=== PATIENT | female | born 1985 | race Caucasian/White ===

== ENCOUNTER 2018-05-26 01:54 | Emergency (ER) | payer MEDICAID ==
[2018-05-26 02:11] VITALS: RESP 16; TEMP 98.6; O2SAT 100
[2018-05-26] MEDS ORDERED: guaiFENesin 200 mg/10 ml Syrup UD PO STA (02:36)
[2018-05-26] MEDS ORDERED: Albuterol 0.083% Inhal Sol (2.5 mg/3 mL) UD INH STA (02:36)
[2018-05-26] MEDS ORDERED: Albuterol-Ipratrop 3 mg / 0.5 (3 ml) UD INH STA (02:36)
[2018-05-26] MEDS ORDERED: Sodium Chloride 0.9% 1,000 ML IV SCH (02:45)
[2018-05-26] MEDS ORDERED: guaiFENesin 100 mg/5 ml Syrup UD ONE (02:46)
[2018-05-26 03:21] LABS: BASO # 0.1 K/uL (0.0-0.2); BASO % 0.9 % (0.0-2.0); EOS # 0.1 K/uL (0.0-0.7); EOS % 1.5 % (0.0-4.0); HEMOGLOBIN 12.2 g/dL (12.0-16.0); LYMPH # 4.4 K/uL (1.0-4.3); LYMPH % 48.1 % (20.0-40.0); MEAN CELL VOLUME 80.9 fl (81.0-99.0); MEAN CORPUSCULAR HEMOGLOBIN 25.5 pg (27.0-31.0); MEAN CORPUSCULAR HGB CONC 31.6 g/dL (33.0-37.0); MEAN PLATELET VOLUME 9.2 fl (7.2-11.7); MONO # 0.5 K/uL (0.0-0.8); MONO % 5.3 % (0.0-10.0); NEUT % 44.2 % (50.0-75.0); NRBC % 0.3 % (0.0-0.0); RBC 4.79 Mil/uL (3.80-5.20); RED CELL DISTRIBUTION WIDTH 14.6 % (11.5-14.5); WHITE BLOOD COUNT 9.1 K/uL (4.8-10.8)
--- NOTE | 2018-05-26 03:29 | ED PDOC ---
HPI: Chest Pain Time Seen by Provider: 05/26/18 02:20 Chief Complaint (Nursing): Chest Pain Chief Complaint (Provider): Chest pain History Per: Patient History/Exam Limitations: no limitations Onset/Duration Of Symptoms: Days Current Symptoms Are (Timing): Still Present Additional History Per: Family () Additional Complaint(s): 32yo female, comes to ER for evaluation of chest pain, described as a pressure like sensation in her mid-sternum, radiating to her left arm x 5 days. She also reports a productive cough with wet phlegm as well as 4 episodes of post-tussive vomiting. She reports associated bodyaches and a mild sore throat; patient last took Tylenol at 11pm last night. She also reports a tactile fever and left ear pain. She deneis any diarrhea, abdominal pain, headache, dizziness, recent travels or known sick contacts. Otherwise: (-) positional component, (-) exertional component, (-) syncope, (-) calf swelling/pain, (-) neuro deficits. PMD: Dr. Thomas Past Medical History Reviewed: Historical Data, Nursing Documentation, Vital Signs Vital Signs: Last Vital Signs Temp 98.6 F 05/26/18 02:06 Pulse 63 05/26/18 02:06 Resp 16 05/26/18 02:06 BP 140/59 L 05/26/18 02:23 Pulse Ox 100 05/26/18 02:06 - Medical History PMH: HTN, Hyperlipidemia, Hypothyroidism - Surgical History Surgical History: No Surg Hx - Family History Family History: States: Diabetes, Hypertension - Home Medications Home Medications: Ambulatory Orders Medication Instructions Recorded Albuterol Sulfate [Ventolin Hfa] 1 puff IH Q4 PRN #1 unit 05/26/18 RX: Naproxen 500 mg PO BID PRN #20 tab 05/26/18 RX: Promethazine DM [Phenergan DM 5 ml PO Q6 PRN #150 ml 05/26/18 Syrup] - Allergies Allergies/Adverse Reactions: Allergies Allergy/AdvReac Type Severity Reaction Status Date / Time No Known Allergies Allergy Verified 05/26/18 02:06 Review of Systems ROS Statement: Except As Marked, All Systems Reviewed And Found Negative ENT: Positive for: Ear Pain Cardiovascular: Positive for: Chest Pain Respiratory: Positive for: Cough, Sputum Gastrointestinal: Positive for: Vomiting Physical Exam - Reviewed Nursing Documentation Reviewed: Yes Vital Signs Reviewed: Yes - Physical Exam Comments: GENERAL APPEARANCE: Patient is awake, alert, oriented x 3, in no acute distress. Resting comfortably. SKIN: Warm, dry; (-) cyanosis. EYES: (-) conjunctival pallor. ENMT: Mucous membranes moist. Airway patent, (-) stridor. Pharynx: clear, uvula midline (-) erythema (-) exudate. TMs: nonbulging, nonerythematous. (-) sinus tenderness. NECK: Supple, FROM (-) tenderness, (-) stiffness, (-) lymphadenopathy, (-) JVD. CHEST AND RESPIRATORY: (-) rash, (-) chest wall tenderness. Lungs: (-) rales, (-) rhonchi, (-) wheezes, (-) rub; breath sounds equal bilaterally. Respirations even and nonlabored, speaking in full sentences. HEART AND CARDIOVASCULAR: (-) irregularity ABDOMEN AND GI: Soft; (-) distention, (-) guarding, (-) tenderness, (-) palpable pulsatile mass. EXTREMITIES: (-) deformity; (-) edema, (-) calf tenderness. (+) distal pulses. NEURO AND PSYCH: Mental status as above. Cranial nerves grossly intact; strength symmetric. Gait: steady. Speech: clear. (-) facial asymmetry (-) aphasia - Laboratory Results Result Diagrams: 05/26/18 03:16 05/26/18 03:16 - ECG O2 Sat by Pulse Oximetry: 100 (RA) Pulse Ox Interpretation: Normal Medical Decision Making Medical Decision Making: Impression: Cough, chest discomfort, probable bronchitis Plan: -- EKG -- Labs -- Chest x-ray -- Duoneb 3ml INH -- Toradol 30mg IV -- Zofran 4mg IVP -- Pepcid 40mg IVP -- Robitussin 200mg PO -- IV fluids EKG: Normal sinus rhythm @68bpm No ST elevation No ectopy QTc [id number] Labs reviewed and grossly unremarkable. On re-evaluation, patient reports improvement of symptoms. On exam, patient remains AAOx3, in no acute distress. Lungs clear to auscultation, cardiac RRR, abdomen soft, non-tender, repeat neuro exam shows no focal findings. Tolerating PO intake. VSS, stable for discharge. Lab/Diagnostic results d/w the patient in great detail. Diagnosis of cough, chest discomfort, post-tussive emesis, bronchitis d/w the patient. Based on history, exam and diagnostic results, plan will be for outpatient follow up. Patient instructed to follow-up with pmd / referral provided / the clinic in 1- 2 days without fail. Advised to take medication as prescribed. Return to the emergency room at any time for any new or worsening symptoms. Patient states she fully agrees with and understands discharge instructions. States that she agrees with the plan and disposition. Verbalized and repeated discharge instructions and plan. I have given the patient opportunity to ask any additional questions. Scribe Attestation: Documented by Gloria Shay, acting as a scribe for ISABEL Thomas. Provider Scribe Attestation: All medical record entries made by the Scribe were at my direction and personally dictated by me. I have reviewed the chart and agree that the record accurately reflects my personal performance of the history, physical exam, medical decision making, and the department course for this patient. I have also personally directed, reviewed, and agree with the discharge instructions and disposition. Disposition - Clinical Impression Clinical Impression: Cough in adult, Bronchitis, Post-tussive emesis, Chest discomfort - Patient ED Disposition Is Patient to be Admitted: No Counseled Patient/Family Regarding: Studies Performed, Diagnosis, Need For Fo llowup, Rx Given - Disposition Referrals: primary, doctor [Other] Disposition: Routine/Home Disposition Time: 04:40 Condition: STABLE Additional Instructions: The emergency medical care you received today was directed towards the acute presenting symptoms. If you were prescribed any medication, please fill it and give as directed. It may take several days for your symptoms to resolve. Return to the Emergency Department at any time if symptoms worsen, do not improve, or if any other problems arise. Please contact your doctor in 2 days for re-evaluation and follow up / or call one of the physicians/clinics you have been referred to that are listed on the Patient Visit Information form that is included in your discharge packet. Bring any paperwork you were given at discharge with you along with any medications to your follow up visit. Our treatment cannot replace ongoing medical care by a primary care provider (PCP) outside of the emergency department. Prescriptions: Albuterol Sulfate [Ventolin Hfa] 1 puff IH Q4 PRN #1 unit PRN Reason: Cough RX: Naproxen 500 mg PO BID PRN #20 tab PRN Reason: Pain, Moderate (4-7) RX: Promethazine DM [Phenergan DM Syrup] 5 ml PO Q6 PRN #150 ml PRN Reason: Cough Instructions: Cough in Adults, Viral Upper Respiratory Infection, Adult (DC), Acute Bronchitis Forms: [employer] (Amharic) Print Language: THAI - POA Present On Arrival: None Results - Lab Results Lab Results: 05/26/18 05/26/18 05/26/18 03:16 03:16 03:16 WBC 9.1 RBC 4.79 Hgb 12.2 Hct 38.7 MCV 80.9 L MCH 25.5 L MCHC 31.6 L RDW 14.6 H Plt Count 322 MPV 9.2 Neut % (Auto) 44.2 L Lymph % (Auto) 48.1 H Carson % (Auto) 5.3 Eos % (Auto) 1.5 Baso % (Auto) 0.9 Neut # (Auto) 4.0 Lymph # (Auto) 4.4 H Carson # (Auto) 0.5 Eos # (Auto) 0.1 Baso # (Auto) 0.1 PT 10.9 INR 1.0 APTT 21.7 L Sodium 138 Potassium 4.3 Chloride 104 Carbon Dioxide 22 Anion Gap 16 BUN 14 Creatinine 0.7 Est GFR ( Amer) > 60 Est GFR (Non-Af Amer) > 60 Random Glucose 165 H Calcium 9.6 Total Bilirubin 0.4 AST 40 H D ALT 38 Alkaline Phosphatase 63 Troponin I < 0.0120 Total Protein 9.0 H Albumin 4.3 Globulin 4.7 H Albumin/Globulin Ratio 0.9 L
[2018-05-26 03:33] LABS: PROTHROMBIN TIME 10.9 Seconds (9.8-13.1)
[2018-05-26 03:36] LABS: PARTIAL THROMBOPLASTIN TIME 21.7 Seconds (25.6-37.1)
[2018-05-26 03:38] LABS: ALB/GLOB RATIO 0.9 (1.0-2.1); ALBUMIN 4.3 g/dL (3.5-5.0); BLOOD UREA NITROGEN 14 mg/dl (7-17); CALCIUM 9.6 mg/dL (8.4-10.2); GFR NON-AFRICAN AMERICAN > 60
[2018-05-26 03:51] LABS: ALT/SGPT 38 U/L (9-52); AST/SGOT 40 U/L (14-36)
[2018-05-26 05:17] VITALS: BP 132/84; PULSE 68
--- NOTE | 2018-05-26 06:35 | CARD ---
APPROVED REPORT Date of service: 05/26/2018 EKG Measurement Heart [id number] <Conclusion> Sinus rhythm with occasional premature atrial complexes Cannot rule out Anterior infarct, age undetermined Abnormal ECG
--- NOTE | 2018-05-26 08:20 | RAD ---
Date of service: 05/26/2018 HISTORY: cough, chest pain COMPARISON: No prior. TECHNIQUE: Chest PA and lateral FINDINGS: LUNGS: No active pulmonary disease. PLEURA: No significant pleural effusion identified. No pneumothorax apparent. CARDIOVASCULAR: No aortic atherosclerotic calcification present. Normal cardiac size. No pulmonary vascular congestion. OSSEOUS STRUCTURES: No significant abnormalities. VISUALIZED UPPER ABDOMEN: Normal. OTHER FINDINGS: None. IMPRESSION: No acute cardiopulmonary disease appreciated.
== END 2018-05-26 05:05 | disposition home or self-care (01) ==
LOC: H.ER 01:54
DX: R05 Cough (principal); R11.10 Vomiting, unspecified; R07.9 Chest pain, unspecified; E03.9 Hypothyroidism, unspecified; I10 Essential (primary) hypertension; E78.5 Hyperlipidemia, unspecified
CPT/HCPCS: 71046; 80053; 81025; 84484; 85025; 85610; 85730; 93005; 96361; 96374; 96375; 99285; J1885; J2405; J7030

== ENCOUNTER 2018-07-06 03:23 | Emergency (ER) | payer MEDICAID ==
[2018-07-06 03:39] VITALS: BMI 34.8
[2018-07-06 03:59] VITALS: BP 101/68; PULSE 71; RESP 18; TEMP 98.2; O2SAT 99
[2018-07-06] MEDS ORDERED: Albuterol-Ipratrop 3 mg / 0.5 (3 ml) UD INH STA (04:08)
--- NOTE | 2018-07-06 04:17 | ED PDOC ---
History of Present Illness History of Present Illness: Hx of DM, HTN, HLD presenting with cough x 3 months, states she has seen her PMD three times and has been to the ER for the same, states she has tried loratidine and promethazine without relief. States she has been coughing so hard that her chest is hurting. Cough is nonproductive. Also complaining of throat pain. States she came to the ER tonight particularly because of shortness of breath. PMD: Dr. Workman HPI: Influenza Time Seen by Provider: 07/06/18 04:01 Chief Complaint: Chest Pain History Per: Patient Onset/Duration Of Symptoms: Days Symptoms include: sore throat, cough, difficulty breathing. denies: fever Past Medical History Vital Signs: Last Vital Signs Temp 98.2 F 07/06/18 03:39 Pulse 71 07/06/18 03:39 Resp 18 07/06/18 03:39 BP 101/68 07/06/18 03:39 Pulse Ox 99 07/06/18 03:39 - Medical History PMH: HTN, Hyperlipidemia, Hypothyroidism - Family History Family History: States: Diabetes, Hypertension - Immunization History Hx Tetanus Toxoid Vaccination: No Hx Influenza Vaccination: No Hx Pneumococcal Vaccination: No - Home Medications Home Medications: Ambulatory Orders Medication Instructions Recorded Albuterol Sulfate [Ventolin Hfa] 1 puff IH Q4 PRN #1 unit 05/26/18 Naproxen 500 mg PO BID PRN #20 tab 05/26/18 Promethazine DM [Phenergan DM 5 ml PO Q6 PRN #150 ml 05/26/18 Syrup] Albuterol HFA [Ventolin HFA 90 2 puff IH [id number] #1 puff 07/06/18 mcg/actuation (8 g)] Azithromycin [Z-Marcel] 250 mg PO DAILY #6 tab 07/06/18 Benzonatate [Tessalon Perle] 100 mg PO TID #20 capsule 07/06/18 - Allergies Allergies/Adverse Reactions: Allergies Allergy/AdvReac Type Severity Reaction Status Date / Time No Known Allergies Allergy Verified 07/06/18 03:39 Review of Systems ROS Statement: Except As Marked, All Systems Reviewed And Found Negative ENT: Positive for: Throat Pain Respiratory: Positive for: Cough, Shortness of Breath Physical Exam - Reviewed Nursing Documentation Reviewed: Yes Vital Signs Reviewed: Yes - Physical Exam Appears: Positive for: Well, Non-toxic, No Acute Distress Head Exam: Positive for: ATRAUMATIC, NORMAL INSPECTION, NORMOCEPHALIC Skin: Positive for: Normal Color, Warm, DRY Eye Exam: Positive for: EOMI, Normal appearance, PERRL ENT: Positive for: Pharynx Is (normal), Other (Nasal erythema, swelling) Neck: Positive for: Normal, Painless ROM, Supple Cardiovascular/Chest: Positive for: Regular Rate, Rhythm Respiratory: Positive for: CNT, Normal Breath Sounds Gastrointestinal/Abdominal: Positive for: Normal Exam, Soft Back: Positive for: Normal Inspection Extremity: Positive for: Normal ROM Neurologic/Psych: Positive for: Alert, Oriented Medical Decision Making Medical Decision Makin Patient presenting with cough, sore throat, shortness of breath, chest pain x 3 months --Normal vitals, nonfocal exam --Patient appears to have common cold v. URI, out of treatment window for flu, very unlikely bacterial infection given length of time of infection --EKG is NSR, no ST-T wave changes --Will check CXR, treat symptomatically, advise followup with PMD 530 --PAtient is feeling better, appears well --PAtient's may have PNA, will give ABx prescription but advised to take a "wait and see" approach --Advised patient to followup with PMD --Well appearing upon discharge - ECG O2 Sat by Pulse Oximetry: 99 Disposition - Clinical Impression Clinical Impression: Cough - Patient ED Disposition Is Patient to be Admitted: No - Disposition Referrals: Jaden Thomas MD [Medical Doctor] - Disposition: Routine/Home Disposition Time: 05:55 Condition: IMPROVED Prescriptions: Albuterol HFA [Ventolin HFA 90 mcg/actuation (8 g)] 2 puff IH [id number] #1 puff Azithromycin [Z-Marcel] 250 mg PO DAILY #6 tab Benzonatate [Tessalon Perle] 100 mg PO TID #20 capsule Instructions: Cough, Adult (DC), Cough, Runny Nose, and the Common Cold Forms: [facility] (Persian)
[2018-07-06] MEDS ORDERED: Albuterol-Ipratrop 3 mg / 0.5 (3 ml) UD ONE (04:38)
--- NOTE | 2018-07-06 09:10 | RAD ---
Date of service: 07/06/2018 HISTORY: cough x 3 months COMPARISON: Chest radiographs 05/26/2018. TECHNIQUE: Chest PA and lateral FINDINGS: LUNGS: No active pulmonary disease. PLEURA: No significant pleural effusion identified. No pneumothorax apparent. CARDIOVASCULAR: No aortic atherosclerotic calcification present. Normal cardiac size. No pulmonary vascular congestion. OSSEOUS STRUCTURES: No significant abnormalities. VISUALIZED UPPER ABDOMEN: Normal. OTHER FINDINGS: None. IMPRESSION: No interval acute cardiopulmonary disease appreciated.
== END 2018-07-06 06:00 | disposition home or self-care (01) ==
LOC: H.ER 03:23
DX: R05 Cough (principal); E03.9 Hypothyroidism, unspecified; E11.9 Type 2 diabetes mellitus without complications; E78.5 Hyperlipidemia, unspecified; I10 Essential (primary) hypertension

== ENCOUNTER 2018-11-19 23:45 | Emergency (ER) | payer MEDICAID ==
[2018-11-19 23:46] VITALS: BMI 34.8
[2018-11-20] MEDS ORDERED: Promethazine 6.25 MG/5 ML CUP PO STA (00:40)
[2018-11-20] MEDS ORDERED: Albuterol-Ipratrop 3 mg / 0.5 (3 ml) UD INH STA ×2 (00:40)
--- NOTE | 2018-11-20 01:12 | ED PDOC ---
History of Present Illness History of Present Illness: 33 years old female with history of diabetes and hypothyroidism presents to ER for evaluation of a combination of nasal congestion and sinus pain that progressed to fever and cough for the past week. Patient reports cough is severe that she feels pulse in her head and states she feels something inside her head when cough. Patient also reports having some itchy eyes and states she went to [facility] yesterday and was prescribed diphenhydramine but cough is still persisting. She denies vision changes, numbness or weakness. PMD: Jaden Thomas HPI: Influenza Time Seen by Provider: 11/20/18 00:15 Chief Complaint: Cough, Cold, Congestion Chief Complaint (Provider): Cough, Cold, Congestion History Per: Patient Exam Limitations: no limitations Onset/Duration Of Symptoms: Days (x7) Symptoms include: fever, cough, nasal congestion (and sinus pain). denies: blurry vision, other (Numbness or weakness) Past Medical History Reviewed: Historical Data, Nursing Documentation, Vital Signs Vital Signs: Last Vital Signs Temp 98.6 F 11/19/18 23:55 Pulse 92 H 11/19/18 23:55 Resp 18 11/19/18 23:55 BP 123/83 11/19/18 23:55 Pulse Ox 96 11/19/18 23:55 Primary Care Provider: FAMILY PROVIDER,NO - Medical History PMH: HTN, Hyperlipidemia, Hypothyroidism - Surgical History Surgical History: No Surg Hx - Family History Family History: States: Diabetes, Hypertension - Social History Current smoker - smoking cessation education provided: No Alcohol: None Drugs: Denies - Immunization History Hx Tetanus Toxoid Vaccination: No Hx Influenza Vaccination: No Hx Pneumococcal Vaccination: No - Home Medications Home Medications: Ambulatory Orders Medication Instructions Recorded Albuterol Sulfate [Ventolin Hfa] 1 puff IH Q4 PRN #1 unit 05/26/18 Naproxen 500 mg PO BID PRN #20 tab 05/26/18 Promethazine DM [Phenergan DM 5 ml PO Q6 PRN #150 ml 05/26/18 Syrup] Albuterol HFA [Ventolin HFA 90 2 puff IH [id number] #1 puff 07/06/18 mcg/actuation (8 g)] Azithromycin [Z-Marcel] 250 mg PO DAILY #6 tab 07/06/18 Benzonatate [Tessalon Perle] 100 mg PO TID #20 capsule 07/06/18 Benzonatate [Tessalon Perle] 100 mg PO TID #20 capsule 11/20/18 Fluticasone Propionate [Flonase] 1 spr NS DAILY #1 bottle 11/20/18 Naproxen [Naprosyn] 500 mg PO BID #30 tablet 11/20/18 Promethazine [Phenergan Syrup] 12.5 mg PO BID PRN #100 ml 11/20/18 - Allergies Allergies/Adverse Reactions: Allergies Allergy/AdvReac Type Severity Reaction Status Date / Time No Known Allergies Allergy Verified 11/19/18 23:58 Review of Systems ROS Statement: Except As Marked, All Systems Reviewed And Found Negative Constitutional: Positive for: Fever Eyes: Negative for: Vision Change ENT: Positive for: Nose Congestion, Other (Sinus pain) Respiratory: Positive for: Cough Neurological: Negative for: Weakness, Numbness Physical Exam - Reviewed Nursing Documentation Reviewed: Yes Vital Signs Reviewed: Yes - Physical Exam Appears: Positive for: Well, No Acute Distress Head Exam: Positive for: ATRAUMATIC, NORMOCEPHALIC Skin: Positive for: Normal Color, Warm, Dry Eye Exam: Positive for: Normal appearance, EOMI, PERRL ENT: Positive for: Nasal Congestion Neck: Positive for: Normal, Painless ROM, Supple Cardiovascular/Chest: Positive for: Regular Rate, Rhythm. Negative for: Murmur Respiratory: Positive for: Normal Breath Sounds, Other (Actively coughing). Negative for: Wheezing Gastrointestinal/Abdominal: Positive for: Normal Exam, Soft. Negative for: Tenderness Back: Positive for: Normal Inspection. Negative for: L CVA Tenderness, R CVA Tenderness Extremity: Positive for: Normal ROM. Negative for: Pedal Edema, Deformity Neurological/Psych: Positive for: Awake, Alert, Oriented (x3). Negative for: Motor/Sensory Deficits Medical Decision Making Medical Decision Making: Time: 38 A/P: URI with possible bronchitis vs. sinus infection --Chest x-ray --Motrin and Duoneb --Phenergan Syrup 0245 --Patient reports some relief of symptoms --Advised symptomatic care and followup with ENT --Very well appearing upon discharge, normal vitals Scribe Attestation: Documented by Batsheva Armstrong, acting as a scribe for Gato Gomez MD. Provider Scribe Attestation: All medical record entries made by the Scribe were at my direction and personally dictated by me. I have reviewed the chart and agree that the record accurately reflects my personal performance of the history, physical exam, medical decision making, and the department course for this patient. I have also personally directed, reviewed, and agree with the discharge instructions and disposition. - ECG O2 Sat by Pulse Oximetry: 96 Disposition - Clinical Impression Clinical Impression: Cough - Disposition Referrals: Justin Schroeder MD [Staff Provider] - Jaden Thomas MD [Primary Care Provider] - Disposition: Routine/Home Disposition Time: 02:45 Condition: IMPROVED Additional Instructions: Please see an Ear, Nose, and Throat specialist (Dr. Schroeder) Saturday for consultation. Prescriptions: Benzonatate [Tessalon Perle] 100 mg PO TID #20 capsule Fluticasone Propionate [Flonase] 1 spr NS DAILY #1 bottle Naproxen [Naprosyn] 500 mg PO BID #30 tablet Promethazine [Phenergan Syrup] 12.5 mg PO BID PRN #100 ml PRN Reason: Cough Instructions: Cough in Adults, Cough, Runny Nose, and the Common Cold (DC) Forms: [employer] (Portuguese)
[2018-11-20] MEDS ORDERED: Promethazine 6.25 MG/5 ML CUP ONE (01:22)
[2018-11-20] MEDS ORDERED: Albuterol-Ipratrop 3 mg / 0.5 (3 ml) UD ONE (01:22)
[2018-11-20 02:58] VITALS: BP 115/65; PULSE 86; RESP 16; TEMP 98.5
[2018-11-20 04:04] VITALS: O2SAT 96
--- NOTE | 2018-11-20 08:12 | RAD ---
Date of service: 11/20/2018 HISTORY: cough, fever COMPARISON: Chest radiographs 07/06/2018. TECHNIQUE: Chest PA and lateral views FINDINGS: LUNGS: No active pulmonary disease. PLEURA: No significant pleural effusion identified. No pneumothorax apparent. CARDIOVASCULAR: No aortic atherosclerotic calcification present. Normal cardiac size. No pulmonary vascular congestion. OSSEOUS STRUCTURES: No significant abnormalities. VISUALIZED UPPER ABDOMEN: Normal. OTHER FINDINGS: None. IMPRESSION: No interval acute cardiopulmonary disease appreciated.
== END 2018-11-20 03:00 | disposition home or self-care (01) ==
LOC: H.ER 23:45
DX: R05 Cough (principal); E03.9 Hypothyroidism, unspecified; E11.9 Type 2 diabetes mellitus without complications; E78.5 Hyperlipidemia, unspecified; I10 Essential (primary) hypertension